=== PATIENT | female | born 2000 | race Caucasian/White ===

== ENCOUNTER 2020-06-15 12:48 | Emergency (ER) | payer SELFPAY ==
[2020-06-15] MEDS ORDERED: DEXTROSE 10%-WATER 1,000 ML IV ONE (14:02)
[2020-06-15] MEDS ORDERED: NORMAL SALINE 1000 ML 1,000 ML IV ONE (14:02)
--- NOTE | 2020-06-15 14:02 | ER Document Report ---
ED General - General Stated Complaint: ABDOMINAL CRAMPING/VAGINIAL BLEEDING 5WKS Time Seen by Provider: 06/15/20 13:56 Notes: 20-year-old primiparous female 5 weeks by dates already confirmed in [place] presents with cramping for 3 days, mild, followed by bleeding this morning with small clots. This was an unplanned but desired . The symptoms are mild. No lightheadedness or fainting. No history of tubal pregnancies. Past Medical History - General Information source: Patient - Social History Smoking Status: Unknown if Ever Smoked Family History: None Review of Systems - Review of Systems Notes: REVIEW OF SYSTEMS GEN: Denies fever, chills, weight loss ENT: Denies sore throat, nasal discharge, ear pain EYES: Denies blurry vision, eye pain, discharge CV: Denies chest pain, palpitations, edema RESP: Denies cough, shortness of breath, wheezing GI: Lower abdominal cramping vaginal bleeding MSK: Denies joint pain/swelling, edema, SKIN: Denies rash, skin lesions LYMPH: Denies swollen glands/lymph nodes NEURO: Denies headache, focal weakness or numbness, dizziness PSYCH: Denies depression, suicidal or homicidal ideation PHYSICAL EXAMINATION General: No acute distress, well-nourished Head: Atraumatic, normocephalic ENT: Mouth normal, oropharynx moist, no exudates or tonsillar enlargement Eyes: Conjunctiva normal, pupils equal, lids normal Neck: No JVD, supple, no guarding CVS: Normal rate, regular rhythm, no murmurs Resp: No resp distress, equal and normal breath sounds bilaterally GI: Nondistended, soft, no tenderness to palpation, no rebound or guarding Ext: No deformities, no edema, normal range of motion in upper and lower ext Back: No CVA or midline TTP Skin: No rash, warm Lymphatic: No lymphadeopathy noted Neuro: Awake, alert. Face symmetric. GCS 15. Physical Exam - Vital signs Vitals: Temp Pulse Resp BP Pulse Ox 98.5 F 64 16 106/69 100 06/15/20 13:31 06/15/20 13:31 06/15/20 13:31 06/15/20 13:31 06/15/20 13:31 Course - Re-evaluation Re-evalutation: 06/15/20 16:45 20-year-old female with first menstrual bleeding. Ultrasound shows small subchorionic bleed. Beta is not necessarily relevant today but will be repeated. The patient is stable looks well and is stable for discharge to follow-up in [place] 06/15/20 18:47 Rh+ Feels well Discharge with vaginal rest and follow-up in [place] with her [facility] team within 48 hours I have discussed with the patient there likely diagnosis, aftercare plan, follow-up plans and my usual and customary return precautions. They verbalized understanding of this. - Vital Signs Vital signs: Temp Pulse Resp BP Pulse Ox 98.6 F 68 13 124/62 100 06/15/20 17:47 06/15/20 17:47 06/15/20 17:47 06/15/20 17:47 06/15/20 17:47 - Laboratory Result Diagrams: 06/15/20 14:00 Laboratory results interpreted by me: 06/15/20 14:00 Beta HCG, Quant 1217.70 H - Diagnostic Test Radiology reviewed: Image reviewed, Reports reviewed Discharge - Discharge Clinical Impression: Subchorionic hemorrhage Qualifiers: Fetus number: single or unspecified fetus Trimester: first trimester Qualified Code(s): O41.8X10 - Other specified disorders of amniotic fluid and membranes, first trimester, not applicable or unspecified Condition: Good Disposition: HOME, SELF-CARE Instructions: Threatened Miscarriage ([facility]) Additional Instructions: Nothing in the vagina including toys penises or any other devices Please follow-up with your [facility] team in [place] ideally within 2 days for repeat lab testing
[2020-06-15 15:26] LABS: HEMOGLOBIN 12.7 g/dL (12.0-15.5); MEAN CORPUSCULAR HEMOGLOBIN 30.2 pg (27.0-33.4); MEAN CORPUSCULAR HGB CONC 34.2 g/dL (32.0-36.0); MEAN CORPUSCULAR VOLUME 88 fl (80-97); PLATELET COUNT 278 10^3/uL (150-450); RED BLOOD COUNT 4.19 10^6/uL (3.72-5.28); RED CELL DISTRIBUTION WIDTH 12.9 % (11.5-14.0); WHITE BLOOD COUNT 8.3 10^3/uL (4.0-10.5)
--- NOTE | 2020-06-15 16:05 | RADIOLOGY REPORT (SQ) ---
EXAM DESCRIPTION: U/S OB TRANSVAGINAL W/O DOP IMAGES COMPLETED DATE/TIME: 06/15/2020 2:41 pm REASON FOR STUDY: cramping 5wks COMPARISON: None. TECHNIQUE: Transabdominal and transvaginal static and realtime grayscale images acquired of the pelv is. Additional selected spectral and color Doppler images recorded. All images stored on PACs. CLINICAL AGE: 5 weeks 4 days. bHCG: Not available at time of exam. LIMITATIONS: None. FINDINGS: UTERUS: No masses. No anomalies. GESTATIONAL SAC: Normal shape. Mean gestational sac diameter is 0.56 cm. YOLK SAC: No POLE: None present. RIGHT ADNEXA: Ovaries are not visualized. No adnexal free fluid. No adnexal masses. LEFT ADNEXA: Ovaries are not visualized. No adnexal free fluid. No adnexal masses. FREE FLUID: None. OTHER: Small subchorionic hemorrhage. IMPRESSION: POSSIBLE EARLY INTRAUTERINE . BHCG LEVEL APPROPRIATE FOR ENDOMETRIAL FINDINGS. CONSIDER F/U BHCG AND/OR ULTRASOUND FOR VERIFICATION AND TO EXCLUDE ECTOPIC . Trimester of : First trimester - 0 to 13 weeks. TECHNICAL DOCUMENTATION: JOB ID: [id number] 2010 [employer]- All Rights Reserved Reading location - IP/workstation name: [email or web address]
[2020-06-15 17:48] VITALS: BP 124/62
== END 2020-06-15 17:47 | disposition home or self-care (01) ==
LOC: ER 12:48
DX: O41.8X10 Other specified disorders of amniotic fluid and membranes, first trimester, not applicable or unspecified (principal); Z3A.01 Less than 8 weeks gestation of pregnancy
CPT/HCPCS: 36415; 76817; 84702; 85027; 86850; 86900; 86901; 99284

== ENCOUNTER 2020-06-16 01:02 | Emergency (ER) | payer SELFPAY ==
[2020-06-16] MEDS ORDERED: ACETAMINOPHEN 325 MG TABLET PO ONE (01:09)
--- NOTE | 2020-06-16 01:12 | ER Document Report ---
ED Medical Screen (RME) - General Chief Complaint: OB Problem (<20wks) Stated Complaint: SEVERE ABDOMINAL PAIN Time Seen by Provider: 06/16/20 01:03 Notes: Patient is a G1, P0 20-year-old female presents emergency department with abdominal cramping and vaginal bleeding. Patient was seen here in the emergency department and was discharged home. Patient stated that she was, "just chillin' " and she ended up having severe pain in her lower abdomen. States that she went to go sit in a warm bath and she ended up expelling clots. Exam: Patient crying. Tender mid lower abdomen. I have greeted and performed a rapid initial assessment of this patient. A comprehensive ED assessment and evaluation of the patient, analysis of test results and completion of medical decision making process will be conducted by an additional ED providers. Physical Exam - Vital signs Vitals: Temp Pulse Resp BP Pulse Ox 98.1 F 97 18 134/86 H 98 06/16/20 01:07 06/16/20 01:07 06/16/20 01:07 06/16/20 01:07 06/16/20 01:07 Course - Vital Signs Vital signs: Temp Pulse Resp BP Pulse Ox 98.1 F 97 18 134/86 H 98 06/16/20 01:07 06/16/20 01:07 06/16/20 01:07 06/16/20 01:07 06/16/20 01:07
--- NOTE | 2020-06-16 02:24 | ER Document Report ---
ED General - General Chief Complaint: Vaginal Bleeding Stated Complaint: SEVERE ABDOMINAL PAIN Time Seen by Provider: 06/16/20 01:03 - HPI Context: This is a 20-year-old primigravida female presenting to the emergency department complaining of pelvic cramping and vaginal bleeding. Patient states that her symptoms began approximately 3 days ago. Patient states her was confirmed at 5 weeks by dates already in [place] but is now having issues with cramping and vaginal bleeding. Patient was seen in this ED yesterday with the same chief complaint. Patient had a hemoglobin of 12.7, hematocrit of 37, a quant hCG of 1217, was found to be B+ and had a ultrasound done that showed possible early intrauterine . Patient was diagnosed with a subchorionic hemorrhage and a threatened miscarriage and was instructed to follow-up with her [facility] in [place] within 2 days for repeat quant hCG level. Apparently after the patient was discharged from the ED she started noticing that she was having worsening cramping, went home to go sit in a warm bath and ended up expelling clots. Patient is complaining of worsening vaginal bleeding and pelvic cramping. Patient rates the pain as a 3 on a scale of 0-5, localizes it to her pelvic area and describes it as sharp and cramping. Patient states nothing alleviates the pain. And the pain seems to be more intense when she has worsening cramps. Associated symptoms: Other - See HPI Exacerbated by: Other - See HPI Relieved by: Other - See HPI Similar symptoms previously: No Recently seen / treated by doctor: Yes - Related Data Allergies/Adverse Reactions: No Known Allergies Allergy (Verified 06/16/20 01:14) Past Medical History - General Information source: Patient - Social History Smoking Status: Current Some Day Smoker Chew tobacco use (# tins/day): No Frequency of alcohol use: None Drug Abuse: None Family History: None Review of Systems - Review of Systems Notes: Review of systems as below unless otherwise stated in HPI. CONSTITUTIONAL [No] fever, [No] chills. EYES [No] eye pain. ENT [No] URI symptoms, [No] sore throat, [No] ear pain. CARDIOVASCULAR [No] chest pain, [No] palpitations, [No] edema. RESPIRATORY [No] Cough, [No] SOB, [No] wheezing. GASTROINTESTINAL [No] abdominal pain, [No] nausea, [No] Diarrhea, [No] Vomiting, [No] constipation, [No] melena, [No] rectal bleeding. GENITOURINARY [No] dysuria, [No] urinary frequency, [No] hematuria, [No] urinary urgency, [No] vaginal discharge, [positive] vaginal bleeding positive pelvic cramping MUSCULOSKELETAL [No] Back pain. SKIN [No] Rash. NEUROLOGIC [No] Headache, [No] recent seizures, [No] paralysis,[No] parathesias. ENDOCRINE [No] polyuria. HEMO/LYMPATIC [No] easy brusing PSYCHIATRIC [No] depression. Physical Exam - Vital signs Vitals: Temp Pulse Resp BP Pulse Ox 98.1 F 97 18 134/86 H 98 06/16/20 01:07 06/16/20 01:07 06/16/20 01:07 06/16/20 01:07 06/16/20 01:07 - Notes Notes: CONSTITUTIONAL [Vital signs reviewed, pt is tearful. HEAD [Atraumatic, Normocephalic.] EYES [Eyes are normal to inspection, No discharge from eyes, Extraocular muscles intact, Sclera are normal, Conjunctiva are normal.] ENT [External ears normal to inspection, Nose examination normal, Mouth normal to inspection.] NECK [Normal ROM, No jugular venous distention, No meningeal signs, ] RESPIRATORY CHEST [Chest is nontender, Breath sounds normal, No respiratory distress.] CARDIOVASCULAR [RRR, No murmurs, Normal S1 S2, No rub, No gallop.] ABDOMEN [Abdomen is nontender, No pulsatile masses, No other masses, Bowel sounds normal, No distension, No peritoneal signs, No hernias.] External genitalia appear normal. There is a very minimal amount of dark blood in the vaginal vault. There are no formed products of conception seen within the vaginal vault. BACK [There is no CVA Tenderness, There is no tenderness to palpation, Normal inspection.] UPPER EXTREMITY [Inspection normal, No cyanosis, No clubbing, No edema, LOWER EXTREMITY [Inspection normal, No cyanosis, No clubbing, No edema, No calf tenderness, NEURO [No focal motor deficits, No focal sensory deficits, Speech normal.] SKIN [Skin is warm, Skin is dry, Skin is normal color.] LYMPHATIC [No adenopathy in neck.] PSYCHIATRIC [Normal affect. ] Course - Re-evaluation Re-evalutation: 06/16/20 02:58 Results of ED MSE discussed with patient and patient's significant other. All questions were answered prior to discharge. Patient was instructed to follow-up with her [facility] in [place] on 06/17/2020. Emergency signs and symptoms, reasons to return to the emergency department discussed with patient. - Vital Signs Vital signs: Temp Pulse Resp BP Pulse Ox 98.1 F 97 18 134/86 H 98 06/16/20 01:07 06/16/20 01:07 06/16/20 01:07 06/16/20 01:07 06/16/20 01:07 - Laboratory Result Diagrams: 06/16/20 02:05 - Diagnostic Test Radiology reviewed: Reports reviewed - also d/w welding foreman Ana; subchorionic hemorrhage no longer present, sac involuting toward cervix, appearance c/w spontaneous ab Discharge - Discharge Clinical Impression: Incomplete miscarriage Condition: Stable Disposition: HOME, SELF-CARE Additional Instructions: Return to the Emergency Department without delay if any worse. Be certain to follow-up with your [facility] in [place] on 06/17/2020 for follow-up. HOME CARE INSTRUCTIONS & INFORMATION: Thank you for choosing us for your medical needs. We hope you're satisfied with the care you received. After you leave, you must properly care for your problem and, at the same time, observe its progress. Any condition can change. Some illnesses can change rapidly over hours or days. If your condition worsens, return to the Emergency Department or see your physician promptly. ABOUT YOUR X-RAYS AND EKG'S: If you had an EKG or X-rays taken, they have been read by the Emergency Physician. The X-rays and EKG's will also be read by a Radiologist or Fabric Worker Supervisor within 24 hours. If discrepancies are noted, you will be notified by telephone. Please be certain the ED has a correct telephone number & address where you can be reached. Also, realize that some fractures or abnormalities do not show up on initial X-rays. If your symptoms continue, see your physician. ABOUT YOUR LABORATORY TEST: If you had laboratory tests, the results have been reviewed by the Emergency Physician. Some test results (for example cultures) may not be available for several days. You will be contacted if any test result shows you need additional treatment. Please be certain the ED has a correct telephone number and address where you can be reached. ABOUT YOUR MEDICATIONS: You will receive instructions on how to take your medicine on the prescription label you receive. Additional information may be provided by the Pharmacy. If you have questions afterwards, call the ED for clarification or further instructions. Some prescribed medications may cause drowsiness. Do not perform tasks such as driving a car or operating machinery without consulting your Pharmacist. If you feel you need a refill of pain medication, your condition will need re-evaluation. Please do not call for a refill of any medication. ABOUT YOUR SIGNATURE: Signature of this document acknowledges to followin. Understanding that you received emergency treatment and that you may be released before al medical problems are known or treated. Please be certain the ED has a correct phone number & address where you can be reached. 2. Acknowledgement that you will arrange for follow-up care as recommended. 3. Authorization for the Emergency Physician to provide information to your follow-up Physician in order to maximize your care. AT ANY TIME, IF YOUR SYMPTOMS CHANGE SIGNIFICANTLY OR WORSEN OR YOU DEVELOP NEW SYMPTOMS, RETURN TO THE EMERGENCY DEPARTMENT IMMEDIATELY FOR RE-EVALUATION. OUR GOAL IS TO PROVIDE EXCELLENT MEDICAL CARE! WE HOPE THAT WE HAVE MET YOUR EXPECTATIONS DURING YOUR EMERGENCY DEPARTMENT VISIT AND THAT YOU FEEL YOU HAVE RECEIVED EXCELLENT CARE! Miscarriage Impending You have been evaluated for a symptoms of miscarriage. At this time, it appears that you are having a miscarriage. This happens to many women. A mis carriage occurs when the fetus is abnormal. There is no medicine or treatment to prevent it. Having a miscarriage does not typically mean that you will not be able to have regular pregnancies in the future. Many women experience the disappointment of miscarriage and then go on to have normal pregnancies. If bleeding is not severe, and if your pain can be controlled with medicine, you could complete the miscarriage at home. If that's not practical, or if the miscarriage doesn't progress spontaneously, we will arrange for a D&C procedure. You should rest in bed. Do not douche or have sex for at least a week, or until OK'd by the doctor. Be sure to follow up with your doctor. Call the doctor or return for re- examination if there is an increase in bleeding or cramping, extreme weakness, fainting, fever, or passage of tissue. Prescriptions: Hydrocodone/Acetaminophen [[place] 5-325 mg Tablet] 1 tab PO Q6HP PRN #10 tablet PRN Reason: pain Ondansetron [Zofran Odt 4 mg Tablet] 4 mg PO Q8HP PRN #8 tab.rapdis PRN Reason: nausea/vomiting Forms: Return to Work
[2020-06-16 02:30] LABS: HEMATOCRIT 36.2 % (36.0-47.0); HEMOGLOBIN 12.5 g/dL (12.0-15.5); MEAN CORPUSCULAR HEMOGLOBIN 30.4 pg (27.0-33.4); MEAN CORPUSCULAR HGB CONC 34.4 g/dL (32.0-36.0); MEAN CORPUSCULAR VOLUME 88 fl (80-97); PLATELET COUNT 303 10^3/uL (150-450); RED CELL DISTRIBUTION WIDTH 13.1 % (11.5-14.0); WHITE BLOOD COUNT 9.3 10^3/uL (4.0-10.5)
[2020-06-16] MEDS ORDERED: ONDANSETRON ODT 4 MG TAB (6 TAB/ER DISP) PO PRN (02:57)
[2020-06-16] MEDS ORDERED: HYDROCODONE/ACETAMINOPHEN 5-325 MG (6 TAB/ER DISP) PO PRN (02:57)
--- NOTE | 2020-06-16 03:15 | RADIOLOGY REPORT (SQ) ---
FIRST TRIMESTER OBSTETRIC ULTRASOUND: 06/16/2020 2:10 AM CHARGE LPN COMPARISON: Pelvic ultrasound from 06/07/2020 HISTORY: 20-year old patient with vaginal bleeding. TECHNIQUE: Multiple apodaca scale and color Doppler images of the pelvis were obtained transvaginally. FINDINGS: The uterus measures 7.8 x 3.3 x 4.1 cm. There is a single intrauterine round hypoechoic structure without evidence of a pole or yolk sac. The mean sac diameter is 6 mm. No perigestational hemorrhage is seen. The cervix measures 2.6 cm in length. The right and left ovaries are normal in size and sonographic appearance. The right ovary measures 1.6 x 1.5 x 1.3 cm. The left ovary measures 2.3 x 2.3 x 2.2 cm. Normal arterial waveforms were obtained from both ovaries. No free fluid is seen in the cul-de-sac. IMPRESSION: There is a single intrauterine round structure which could represent an early gestational sac. No pole or yolk sac is seen. Interval follow-up is recommended with correlation for quantitative beta hCG levels. Obstetric follow up for routine care should be performed.
[2020-06-16 03:24] VITALS: BP 120/64
== END 2020-06-16 03:23 | disposition home or self-care (01) ==
LOC: ER 01:02
DX: O03.4 Incomplete spontaneous abortion without complication (principal); R10.2 Pelvic and perineal pain; F17.200 Nicotine dependence, unspecified, uncomplicated
CPT/HCPCS: 36415; 76817; 84702; 85027; 93976; 99285